=== PATIENT | female | born 2000 | race Caucasian/White ===

== ENCOUNTER 2020-05-02 16:54 | Inpatient (IN) | payer OTHER ==
[~2020-05-02 16:54] MED LIST: BENTYL 20MG TAB20 MG PO; REGLAN10 MG PO
[2020-05-02 17:39] LABS: HEMOGLOBIN 11.2 gm/dl (12.3-15.3); RED BLOOD COUNT 3.75 M/UL (4.00-5.10); WHITE BLOOD COUNT 9.8 K/UL (4.5-11.0)
[2020-05-02] MEDS ORDERED: FERROUS SULFAT325 MG PO (19:55)
[2020-05-02] MEDS ORDERED: PRENATAL VITAM1 EAC3 PO (19:56)
[2020-05-04 02:18] LABS: HEMOGLOBIN 9.3 gm/dl (12.3-15.3)
[2020-05-05] MEDS ORDERED: DOCUSATE SODIU100 MG PO (12:36)
[2020-05-05] MEDS ORDERED: IBUPROFEN600 MG PO (12:36)
[2020-05-05] MEDS ORDERED: LORTAB 5-325 M1 EACH PO (12:41)
== END 2020-05-05 15:09 | disposition home or self-care (01) | DRG 807 ==
LOC: GENOP 16:54 → OB 17:06
PROVIDERS: Obstetrics & Gynecology; ADMIT Obstetrics & Gynecology
PROC: 10907ZC Drainage of Amniotic Fluid, Therapeutic from Products of Conception, Via Natural or Artificial Opening (ICD-10-PCS; principal; 2020-05-03)
PROC: 10E0XZZ Delivery of Products of Conception, External Approach (ICD-10-PCS; 2020-05-03)
PROC: 0U7C7ZZ Dilation of Cervix, Via Natural or Artificial Opening (ICD-10-PCS; 2020-05-03)
PROC: 0W8NXZZ Division of Female Perineum, External Approach (ICD-10-PCS; 2020-05-03)
DX: O13.4 Gestational [pregnancy-induced] hypertension without significant proteinuria, complicating childbirth (principal); Z37.0 Single live birth; Z3A.39 39 weeks gestation of pregnancy; Z87.442 Personal history of urinary calculi; O99.02 Anemia complicating childbirth; D64.9 Anemia, unspecified; Z37.9 Outcome of delivery, unspecified; Z82.49 Family history of ischemic heart disease and other diseases of the circulatory system; Z28.21 Immunization not carried out because of patient refusal
CPT/HCPCS: 36415; 51702; 81001; 82800; 85014; 85018; 85025; J2405; J2590; J3430; J7120